=== PATIENT | female | born 1945 | race Caucasian/White ===

== ENCOUNTER → 2016-10-21 | Outpatient (CLI) | payer MEDICARE, OTHER ==
[2016-10-21 15:58] LABS: MEAN CORPUSCULAR HEMOGLOBIN 28.4 PG (26.0-34.0); MEAN CORPUSCULAR HGB CONC 33.6 g/dL (31.0-37.0); MEAN PLATELET VOLUME 9.3 FL (6.0-9.5); WHITE BLOOD COUNT 2.7 10^3uL (4.0-11.0)
[2016-10-21 17:09] LABS: ALBUMIN 4.7 g/dL (3.4-5.0); ANION GAP 15.5 MEQ/L (3-15); CALCULATED IONIZED CALCIUM 3.8 mg/dL (3.8-4.6); TOTAL PROTEIN 8.3 g/dL (6.4-8.5)
[2016-10-22 21:27] LABS: RNP AUTOANTIBODYr 69 U/mL (0-99)
[2016-10-22 21:28] LABS: ANTI-DS DNA 5 U/mL (0-99); SCLERODERMA ANTIBODY 25 U/mL (0-99); SJOGRENS SSA ANTIBODIES 10 U/mL (0-99); SJOGRENS SSB ANTIBODIES 16 U/mL (0-99)
[2016-10-23 14:13] LABS: CH50 COMPLEMENT TOTAL 63 U/mL (30 - 75)
== END ==
LOC: LAB 15:09
PROVIDERS: ATTEND Internal Medicine Rheumatology
DX: M06.4 Inflammatory polyarthropathy (principal); R76.8 Other specified abnormal immunological findings in serum; L40.8 Other psoriasis
CPT/HCPCS: 36415; 80053; 84181; 84550; 85027; 85652; 86038; 86140; 86160; 86162; 86200; 86225; 86226; 86235; 86255; 86431; 88184

== ENCOUNTER → 2016-12-12 | Outpatient (CLI) | payer MEDICARE, OTHER ==
[2016-12-12 10:40] LABS: MEAN CORPUSCULAR HEMOGLOBIN 27.7 PG (26.0-34.0); MEAN CORPUSCULAR HGB CONC 33.1 g/dL (31.0-37.0); MEAN CORPUSCULAR VOLUME 84 FL (80-100); MEAN PLATELET VOLUME 9.4 FL (6.0-9.5); PLATELET COUNT 155 10^3uL (150-450); WHITE BLOOD COUNT 1.93 10^3uL (4.0-11.0)
[2016-12-12 11:10] LABS: BILIRUBIN,URINE Negative (Negative); CLARITY,URINE Clear; GLUCOSE, URINE (UA) Negative (Negative); LEUKOCYTE ESTERASE ,URINE Negative (Negative); UROBILINOGEN,URINE 0.2 mg/dL (0.2-1.0)
[2016-12-12 11:18] LABS: ANION GAP 13.2 MEQ/L (3-15); CALCULATED IONIZED CALCIUM 3.7 mg/dL (3.8-4.6); TOTAL PROTEIN 7.2 g/dL (6.4-8.5)
[2016-12-12 11:48] LABS: BAND NEUTROPHILS % 0 % (0-6); EOSINOPHILS % 3 % (0-4); LYMPHOCYTES # 1.1 #; MONOCYTES # 0.3 #; MONOCYTES % 27 % (3-11); SEGMENTED NEUTROPHILS % 12 % (51-67); TOTAL CELLS COUNTED 100
[2016-12-12 11:49] LABS: RBC MORPH NORMAL (NORMAL)
[2016-12-12 11:52] LABS: COLOR,URINE Light Yellow
== END ==
LOC: LAB 10:15
PROVIDERS: ATTEND Family Medicine
DX: E78.2 Mixed hyperlipidemia (principal); R79.89 Other specified abnormal findings of blood chemistry; D50.8 Other iron deficiency anemias; N39.0 Urinary tract infection, site not specified; E13.65 Other specified diabetes mellitus with hyperglycemia; E03.4 Atrophy of thyroid (acquired); M81.0 Age-related osteoporosis without current pathological fracture
CPT/HCPCS: 36415; 80053; 80061; 81003; 82306; 82728; 83036; 84436; 84443; 85025

== ENCOUNTER → 2016-12-31 | Outpatient (CLI) | payer MEDICARE, OTHER ==
[~2016-12-31] MED LIST: LEVO100T PO; MELO-249 PO
[2016-12-31 10:07] LABS: MEAN CORPUSCULAR HEMOGLOBIN 27.4 PG (26.0-34.0); MEAN CORPUSCULAR HGB CONC 32.7 g/dL (31.0-37.0); MEAN PLATELET VOLUME 9.8 FL (6.0-9.5); WHITE BLOOD COUNT 2.01 10^3uL (4.0-11.0)
[2016-12-31 10:42] LABS: ALBUMIN 4.5 g/dL (3.4-5.0); ALKALINE PHOSPHATASE 94 U/L (38-126); ANION GAP 17.3 MEQ/L (3-15); BUN/CREATININE RATIO 13 (10-20); CALCULATED IONIZED CALCIUM 3.7 mg/dL (3.8-4.6); TOTAL PROTEIN 7.8 g/dL (6.4-8.5)
== END ==
LOC: LAB 09:53
PROVIDERS: ATTEND Internal Medicine Rheumatology
DX: M06.4 Inflammatory polyarthropathy (principal); R76.8 Other specified abnormal immunological findings in serum; L40.8 Other psoriasis
CPT/HCPCS: 36415; 80053; 85027; 85652; 86140